=== PATIENT | female | born 1950 | race Caucasian/White ===

== ENCOUNTER → 2016-07-28 | Outpatient (REF) | payer OTHER ==
[2016-07-28 13:24] LABS: PHENOBARBITAL LEVEL 4.9 UG/ML (15.0-40.0)
== END ==
LOC: M LAB REF 12:58
PROVIDERS: ATTEND Nurse Practitioner Adult Health
DX: R56.9 Unspecified convulsions (principal); Z79.899 Other long term (current) drug therapy

== ENCOUNTER → 2016-12-11 | Outpatient (REF) | payer OTHER ==
[2016-12-11 14:29] LABS: PHENOBARBITAL LEVEL 6.4 UG/ML (15.0-40.0)
== END ==
LOC: M LAB REF 13:57
PROVIDERS: ATTEND Nurse Practitioner Adult Health
DX: Z79.899 Other long term (current) drug therapy (principal); R56.9 Unspecified convulsions

== ENCOUNTER → 2017-05-25 | Day surgery (SDC) | payer MEDICARE, OTHER ==
[~2017-05-25] MED LIST: LIDOCAINE 2% INJ 100 MG/5 ML SDV (FOR ANES.) As Ordered; PROPOFOL 200 MG/20 ML VIAL As Ordered
[2017-05-25] MEDS: NS 1,000 ML IV (07:15)
== END | disposition home or self-care (01) ==
LOC: M OPP 06:56
DX: Z12.11 Encounter for screening for malignant neoplasm of colon (principal); Z83.71 Family history of colonic polyps; D12.3 Benign neoplasm of transverse colon; K64.0 First degree hemorrhoids; R12 Heartburn; K21.9 Gastro-esophageal reflux disease without esophagitis; K22.8 Other specified diseases of esophagus; K44.9 Diaphragmatic hernia without obstruction or gangrene; R56.9 Unspecified convulsions; Z78.0 Asymptomatic menopausal state; J45.909 Unspecified asthma, uncomplicated; G47.30 Sleep apnea, unspecified; Z87.891 Personal history of nicotine dependence; Z79.899 Other long term (current) drug therapy
CPT/HCPCS: 45380

== ENCOUNTER → 2018-03-30 | Outpatient (REF) | payer MEDICARE, OTHER ==
[~2018-03-30] MED LIST changes: +DILA100C PO; -LIDOCAINE 2% INJ 100 MG/5 ML SDV (FOR ANES.) As Ordered; +PHEN30CA PO; +PHEN32.44; -PROPOFOL 200 MG/20 ML VIAL As Ordered
== END ==
LOC: M LAB REF 12:03
PROVIDERS: ATTEND Nurse Practitioner Adult Health
DX: R56.9 Unspecified convulsions (principal); Z79.899 Other long term (current) drug therapy

== ENCOUNTER → 2019-01-10 | Outpatient (REF) | payer MEDICARE, OTHER | LOC: M LAB REF 16:33 | PROVIDERS: ATTEND Nurse Practitioner Adult Health | DX: R20.1 Hypoesthesia of skin (principal) ==

== ENCOUNTER → 2019-01-10 | Outpatient (REF) | payer MEDICARE, OTHER | LOC: M LAB REF 12:38 | PROVIDERS: ATTEND Nurse Practitioner Adult Health | DX: R56.9 Unspecified convulsions (principal) ==

== ENCOUNTER → 2019-10-03 | Outpatient (REF) | payer MEDICARE, OTHER | LOC: M LAB REF 16:38 | PROVIDERS: ATTEND Nurse Practitioner Adult Health | DX: R56.9 Unspecified convulsions (principal) ==

== ENCOUNTER → 2020-10-03 | Outpatient (REF) | payer MEDICARE, OTHER ==
[2020-10-03 18:34] LABS: PHENYTOIN (DILANTIN) 17.6 UG/ML (10.0-20.0)
[2020-10-03 18:40] LABS: VITAMIN B12 LEVEL > 2000 PG/ML (247-911)
== END ==
LOC: M LAB REF 15:51
PROVIDERS: ATTEND Nurse Practitioner Adult Health
DX: Z51.81 Encounter for therapeutic drug level monitoring (principal); D51.8 Other vitamin B12 deficiency anemias

== ENCOUNTER → 2021-10-04 | Outpatient (REF) | payer MEDICARE, OTHER ==
[2021-10-04 17:02] LABS: PHENOBARBITAL LEVEL 4.7 UG/ML (15.0-40.0); PHENYTOIN (DILANTIN) 15.7 UG/ML (10.0-20.0)
== END ==
LOC: M LAB REF 16:18
PROVIDERS: ATTEND Nurse Practitioner Adult Health
DX: Z51.81 Encounter for therapeutic drug level monitoring (principal)

== ENCOUNTER → 2022-07-25 | Outpatient (REF) | payer MEDICARE, OTHER ==
[2022-07-25 13:37] LABS: PHENOBARBITAL LEVEL 5.1 UG/ML (15.0-40.0); PHENYTOIN (DILANTIN) 11.9 UG/ML (10.0-20.0)
== END ==
LOC: M LAB REF 12:08
PROVIDERS: ATTEND Nurse Practitioner Adult Health
DX: R56.9 Unspecified convulsions (principal)

== ENCOUNTER → 2022-10-01 | Outpatient (REF) | payer MEDICARE, OTHER | LOC: M LAB REF 16:18 | PROVIDERS: ATTEND Nurse Practitioner Family | DX: R56.9 Unspecified convulsions (principal) ==

== ENCOUNTER → 2023-07-06 | Outpatient (REF) | payer MEDICARE, OTHER ==
[2023-07-06 18:16] LABS: RSV AMPLIFICATION NEGATIVE (NEGATIVE)
== END ==
LOC: M LAB REF 17:09
PROVIDERS: ATTEND Nurse Practitioner Family
DX: R05.9 Cough, unspecified (principal)

== ENCOUNTER → 2024-01-15 | Outpatient (REF) | payer MEDICARE, OTHER | LOC: M LAB REF 12:13 | PROVIDERS: ATTEND Internal Medicine | DX: R56.9 Unspecified convulsions (principal) ==

== ENCOUNTER → 2024-05-06 | Outpatient (REF) | payer MEDICARE, OTHER | LOC: M LAB REF 11:16 | PROVIDERS: ATTEND Nurse Practitioner Family | DX: R56.9 Unspecified convulsions (principal) ==